=== PATIENT | female | born 1945 | race Caucasian/White ===

== ENCOUNTER 2020-07-09 07:51 | Day surgery (SDC) | payer MEDICAID, MEDICARE ==
[~2020-07-09 07:51] MED LIST: Midazolam 1 MG/ML 2 ML SDV ONE; Propofol 200 MG/20 ML SDV ONE; fentaNYL 100 MCG/2 ML SDV ONE
[2020-07-09] MEDS ORDERED: Sodium Chloride 0.9% 1,000 ML IV SCH (08:15)
--- NOTE | 2020-07-10 09:04 | OR ---
DATE OF PROCEDURE: 07/09/2020 SURGEON: Ganesh Pena MD PROCEDURE: EGD. FINDINGS: 1. Very mild inflammation at GE junction. 2. Retained solid food in the stomach. COMPLICATIONS: None. MECHANIC DRIVER: None. ANESTHESIA: MAC. PREOPERATIVE DIAGNOSIS: Dysphagia. POSTOPERATIVE DIAGNOSIS: Dysphagia. RISKS: Risks, benefits, alternatives, and limitations including, but not limited to, infection, bleeding, perforation, false positives and false negatives were explained. The patient wished to proceed. PROCEDURE IN DETAIL: The patient was placed in left lateral decubitus position. The EGD scope was introduced and advanced atraumatically to the second part of the duodenum. No evidence of duodenitis or ulceration. No old or new blood within the stomach. The patient had a large amount of retained solid food. The GE junction showed very mild inflammation concerning for reflux disease, biopsied in all 4 quadrants using cold biopsy forceps. The remaining esophagus was inspected and without abnormality. The air was removed from the stomach. The patient tolerated the procedure well. Of note, the patient will be sent for speech pathology for further evaluation. Ganesh Pena MD /[id number]
== END 2020-07-09 11:20 | disposition home or self-care (01) ==
LOC: JP.SDS 07:51
PROVIDERS: ATTEND Surgery
DX: K20.90 Esophagitis, unspecified without bleeding (principal); K22.8 Other specified diseases of esophagus; E11.9 Type 2 diabetes mellitus without complications; R13.10 Dysphagia, unspecified
CPT/HCPCS: 43239; J2704; J3010; J7030; 88305; J2250

== ENCOUNTER 2021-02-21 08:33 | Emergency (ER) | payer MEDICARE ==
--- NOTE | 2021-02-21 09:18 | EDM.PDOC ---
ED HPI GENERAL MEDICAL PROBLEM - General Chief Complaint: General Stated Complaint: VIA [facility] Time Seen by Provider: 02/21/21 08:50 Source of Information: Reports: Patient, EMS History Limitations: Reports: No Limitations - History of Present Illness INITIAL COMMENTS - FREE TEXT/NARRATIVE: 75-year-old female brought in by [facility] ambulance because of bilateral shoulder pain, weakness, and generalized malaise after some medication changes over the past few days. Her rheumatoid medicines have been reduced so she can be on an antibiotic for "sinus infection". This morning she was having significant discomfort in her shoulders, difficulty moving, and generalized weakness compared to her baseline. She lives in assisted living, they felt more comfortable with her having an evaluation although her symptoms seem to have improved and she feels closer to her baseline at this time. No fevers or chills, no nausea or vomiting, denies shortness of breath. She has had a persistent periorbital headache for the past 3 weeks which they are attributing to sinusitis. She also felt yesterday she was leaning in her chair somewhat, could not really explain why. Onset: Gradual Associated Symptoms: Reports: Confusion (Mild confusion intermittent), Headaches (Left-sided), Malaise, Weakness. Denies: Chest Pain, Cough, Fever/Chills, Loss of Appetite, Shortness of Breath - Related Data Allergies Allergy/AdvReac Type Severity Reaction Status Date / Time No Known Allergies Allergy Verified 07/09/20 08:32 Home Meds: Home Meds Acetaminophen [Tylenol] 650 mg PO Q6HR PRN 07/06/20 [History] Calcium Carb/Vitamin D3/Vit K1 [Calcium + D Soft Chewable Tab] 1 tab PO DAILY 07/06/20 [History] DULoxetine [Cymbalta] 20 mg PO DAILY 07/06/20 [History] Dulaglutide [Trulicity] 0.75 mg SQ WEEKLY 07/06/20 [History] Gabapentin [Neurontin] 200 mg PO BID 07/06/20 [History] Menthol [Biofreeze] 1 applic TOP QID 07/06/20 [History] Metoprolol Succinate [Toprol Xl] 50 mg PO DAILY 07/06/20 [History] Multivitamin with Folic Acid [Multiple Vitamin Tablet] 1 tab PO DAILY 07/06/20 [History] Mupirocin 1 applic TOP BID 07/06/20 [History] Pantoprazole Sodium [Protonix] 40 mg PO DAILY 07/06/20 [History] Pyridoxine HCl (Vitamin B6) [Vitamin B-6] 100 mg PO DAILY 07/06/20 [History] Vitamin E 3 tab PO DAILY 07/06/20 [History] atorvaSTATin [Lipitor] 40 mg PO DAILY 07/06/20 [History] metFORMIN [Glucophage] 1,000 mg PO BID 07/06/20 [History] predniSONE [Prednisone] 4 tab PO DAILY 07/06/20 [History] traZODone 100 mg PO BEDTIME 07/06/20 [History] Past Medical History HEENT History: Reports: Cataract, Macular Degeneration Cardiovascular History: Reports: High Cholesterol Gastrointestinal History: Reports: Cholelithiasis [employer] History: Reports: Endometriosis, Neurological History: Reports: Concussion Endocrine/Metabolic History: Reports: Diabetes, Type II Immunologic History: Reports: Other (See Below) Other Immunologic History: Lupus Dermatologic History: Reports: Eczema - Infectious Disease History Infectious Disease History: Reports: Chicken Pox, Measles, 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 Denies: Vision Change Respiratory: Denies: Shortness of Breath, Pleuritic Chest Pain Cardiovascular: Denies: Chest Pain, Palpitations GI/Abdominal: Denies: Abdominal Pain, Nausea, Vomiting Musculoskeletal: Reports: Shoulder Pain (Bilateral, somewhat worse on the left) Skin: Denies: Bruising, Rash Neurological: Reports: Headache, Weakness (Global weakness, no asymmetry) Psychiatric: Reports: No Symptoms ED EXAM, GENERAL - Physical Exam Exam: See Below Exam Limited By: No Limitations General Appearance: Alert, No Apparent Distress Eye Exam: Bilateral Eye: EOMI, PERRL Head: Atraumatic Neck: Supple, Non-Tender Respiratory/Chest: Lungs Clear Cardiovascular: Regular Rate, Rhythm GI/Abdominal: Soft, Non-Tender Extremities: Other (Even minimal passive range of motion of the left shoulder causes intense discomfort, the right is sore as well) Neurological: Alert, Oriented, No Motor/Sensory Deficits (No asymmetry of weakness to the extremities) Psychiatric: Normal Affect, Normal Mood Course - Vital Signs Last Recorded V/S: Last Vital Signs Temp 95.9 F L 02/21/21 08:48 Pulse 67 02/21/21 08:48 Resp 12 02/21/21 08:48 BP 117/54 L 02/21/21 08:48 Pulse Ox 95 02/21/21 08:48 - Orders/Labs/Meds Labs: Laboratory Tests 02/21/21 02/21/21 Range/Units 09:25 09:25 WBC 16.5 H (4.5-11.0) K/uL RBC 3.47 (3.30-5.50) M/uL Hgb 10.4 L (12.0-15.0) g/dL Hct 31.3 L (36.0-48.0) % MCV 90 (80-98) fL MCH 30 (27-31) pg MCHC 33 (32-36) % Plt Count 268 (150-400) K/uL Neut % (Auto) 84.8 H (36-66) % Lymph % (Auto) 7.8 L (24-44) % [place] % (Auto) 6.5 H (2-6) % Eos % (Auto) 0.7 L (2-4) % Baso % (Auto) 0.2 (0-1) % Sodium 131 L (140-148) mmol/L Potassium 4.1 (3.6-5.2) mmol/L Chloride 94 L (100-108) mmol/L Carbon Dioxide 29 (21-32) mmol/L Anion Gap 12.1 (5.0-14.0) mmol/L BUN 18 (7-18) mg/dL Creatinine 1.2 H (0.6-1.0) mg/dL Est Cr Clr Drug Dosing 34.54 mL/min Estimated GFR (MDRD) 44 L (>60) Glucose 99 (74-106) mg/dL Calcium 9.0 (8.5-10.1) mg/dL Troponin I High Sens 5.4 (<=60.3) pg/mL - Re-Assessments/Exams Free Text/Narrative Re-Assessment/Exam: 02/21/21 09:[address] without contrast as well as CBC BMP and troponin were obtained. If these tests are reassuring, patient will be able to be transferred back. 02/21/21 10:07 White count is elevated likely due to the prednisone therapy, head CT was negative as follows IMPRESSION: No acute intracranial abnormality. Rest for labs were reassuring and the patient remained asymptomatic other than baseline symptoms while in the emergency room. I have no reason for hospitalization or further assessment at this time. Departure - Departure Time of Disposition: 10:53 Disposition: DC/[facility] Clinical Impression: Rheumatoid arthritis flare, Generalized weakness Shoulder pain, bilateral Qualifiers: Chronicity: chronic Qualified Code(s): M25.511 - Pain in right shoulder - Discharge Information Instructions: Arthritis Referrals: Kalani Silvestre MD [Primary Care Provider] - Forms: ED Department Discharge Care Plan Goals: Continue with current treatment plan, treat pain as needed. Consider rechecking with your primary provider in 2 or 3 days if not improving satisfactorily. Sepsis Event Note (ED) - Evaluation Sepsis Screening Result: No Definite Risk - Focused Exam Vital Signs: Vital Signs Temp Pulse Resp BP Pulse Ox 02/21/21 08:48 95.9 F L 67 12 117/54 L 95
--- NOTE | 2021-02-21 10:06 | CRLCT ---
For Patients: As a result of the Century Cures Act, medical imaging exams and procedure reports are released immediately into your electronic medical record. You may view this report before your referring provider. If you have questions, please contact your health care provider. INDICATION: Weakness. Headache. TECHNIQUE: CT Head without contrast. COMPARISON: None FINDINGS: There is atherosclerotic calcification. No hydrocephalus. Mild frontal atrophy. No midline shift. No acute intracranial hemorrhage. No extra-axial fluid collection. No skull fracture. Visualized paranasal sinuses and mastoid air cells are clear. IMPRESSION: No acute intracranial abnormality. Dictated by Pb Camacho MD @ 02/21/2021 10:04:16 AM Please note that all CT scans at this facility use dose modulation, iterative reconstruction, and/or weight-based dosing when appropriate to reduce radiation dose to as low as reasonably achievable. Dictated by: Pb Camacho MD @ 02/21/2021 10:04:24 (Electronically Signed)
== END 2021-02-21 10:54 ==
LOC: JP.ED 08:33
DX: M06.9 Rheumatoid arthritis, unspecified (principal); R53.1 Weakness; E78.00 Pure hypercholesterolemia, unspecified; E11.9 Type 2 diabetes mellitus without complications; Z79.84 Long term (current) use of oral hypoglycemic drugs; Z79.899 Other long term (current) drug therapy
CPT/HCPCS: 36415; 70450; 80048; 84484; 85025; 99285-25

== ENCOUNTER 2021-06-23 19:33 | Emergency (ER) | payer MEDICARE | END 2021-06-23 23:12 | disposition home or self-care (01) | LOC: JP.ED 19:33 | DX: R53.1 Weakness (principal); F01.50 Vascular dementia, unspecified severity, without behavioral disturbance, psychotic disturbance, mood disturbance, and anxiety; E78.00 Pure hypercholesterolemia, unspecified; E11.9 Type 2 diabetes mellitus without complications; Z79.84 Long term (current) use of oral hypoglycemic drugs; Z79.899 Other long term (current) drug therapy | CPT/HCPCS: 36415; 80048; 81001; 82140; 82607; 82728; 82746; 84439; 84443; 84450; 84460; 85025; 99283; 99284 ==

== ENCOUNTER 2021-07-08 10:04 | Day surgery (SDC) | payer MEDICARE ==
[2021-07-08] MEDS ORDERED: Sodium Chloride 0.9% 1,000 ML IV SCH (10:30)
[2021-07-08] MEDS ORDERED: Propofol 200 MG/20 ML SDV ONE ×2 (10:50→11:46)
[2021-07-08] MEDS ORDERED: fentaNYL 100 MCG/2 ML SDV ONE (10:50)
[2021-07-08 11:08] LABS: CORONAVIRUS COVID-19 NAA NEGATIVE (NEGATIVE)
== END 2021-07-08 14:44 ==
LOC: JP.SDS 10:04
PROVIDERS: ATTEND Family Medicine
DX: K29.61 Other gastritis with bleeding (principal); K25.4 Chronic or unspecified gastric ulcer with hemorrhage; D50.0 Iron deficiency anemia secondary to blood loss (chronic); R19.5 Other fecal abnormalities; E11.9 Type 2 diabetes mellitus without complications; E78.5 Hyperlipidemia, unspecified; Z01.812 Encounter for preprocedural laboratory examination; Z20.822 Contact with and (suspected) exposure to COVID-19
CPT/HCPCS: 0241U; 88305; J2704; J3010; J7030

== ENCOUNTER 2022-12-03 18:18 | Inpatient (IN) | payer MEDICARE ==
[2022-12-03] MEDS ORDERED: Sodium Chloride 0.9% 10 ML Syringe FLUSH PRN (18:19)
[2022-12-03] MEDS ORDERED: Sodium Chloride 0.9% 1,000 ML IV SCH ×2 (18:30→19:45)
[2022-12-03 18:43] LABS: BASOPHILS ABSOLUTE AUTO 0.08 K/uL (0.00-0.10); BASOPHILS PERCENT AUTO 0.3 % (0.1-1.3); EOSINOPHILS ABSOLUTE AUTO 0.08 K/uL (0.00-0.40); EOSINOPHILS PERCENT AUTO 0.3 % (0.0-5.4); HEMATOCRIT 27.4 % (34.3-46.0); HEMOGLOBIN 8.8 g/dL (11.2-15.5); IMMATURE GRAN PERCENT AUTO 0.4 % (0.0-0.7); LYMPHOCYTES ABSOLUTE AUTO 0.76 K/uL (0.8-3.3); LYMPHOCYTES PERCENT AUTO 3.3 % (11.4-47.7); MEAN CORPUSCULAR HEMOGLOBIN 26.6 pg (31.6-35.5); MEAN CORPUSCULAR HGB CONC 32.1 g/dL (31.6-35.5); MEAN CORPUSCULAR VOLUME 82.8 fL (81.4-99.0); MONOCYTES ABSOLUTE AUTO 1.02 K/uL (0.20-0.90); MONOCYTES PERCENT AUTO 4.4 % (3.3-12.6); NEUTROPHILS ABSOLUTE AUTO 21.18 K/uL (1.0-7.6); NEUTROPHILS PERCENT AUTO 91.3 % (40.0-78.1); PLATELET COUNT,PLT 339 K/uL (130-375); RED BLOOD CELL COUNT 3.31 M/uL (3.77-5.24); WHITE BLOOD CELL COUNT,WBC 23.2 K/uL (3.2-11.0)
[2022-12-03 19:13] LABS: A/G RATIO 1.1 (1.2-2.2); ALANINE AMINOTRANSFERASE,ALT 20 U/L (12-78); ALBUMIN 3.2 g/dL (3.4-5.0); ALKALINE PHOSPHATASE 67 U/L (46-116); ASPARTATE AMNIOTRANSFERASE,AST 16 U/L (15-37); BILIRUBIN TOTAL 0.4 mg/dL (0.2-1.0); BLOOD UREA NITROGEN,BUN 20 mg/dL (7-18); C-REACTIVE PROTEIN 0.21 mg/dL (0.0-0.3); CALCIUM 8.6 mg/dL (8.5-10.1); CARBON DIOXIDE,CO2 27 mmol/L (21-32); CHLORIDE,CL 101 mmol/L (100-108); CREATININE 1.1 mg/dL (0.6-1.0); ESTIMATED GFR 52 mL/min (>60); GLUCOSE RANDOM 140 mg/dL (74-106); POTASSIUM,K 3.7 mmol/L (3.6-5.2); SODIUM,NA 135 mmol/L (140-148); TROPONIN I HIGH SENSITIVITY 9.6 pg/mL (<=60.3)
[2022-12-03 19:14] LABS: ANION GAP 10.7 mmol/L (5.0-14.0)
[2022-12-03] MEDS ORDERED: cefTRIAXone 1 GM in Sodium Chloride 0.9% 50 ML IV ONE (19:17)
[2022-12-03 21:00] LABS: APPEARANCE,URINE SLIGHTLY CLOUDY (CLEAR); BILIRUBIN,URINE NEGATIVE (NEGATIVE); COLOR,URINE YELLOW (YELLOW); GLUCOSE,URINE NEGATIVE (NEGATIVE); KETONES,URINE NEGATIVE (NEGATIVE); LEUKOCYTE ESTERASE,URINE MODERATE (NEGATIVE); NITRITE,URINE NEGATIVE (NEGATIVE); OCCULT BLOOD,URINE SMALL (NEGATIVE); PROTEIN,URINE 30 mg/dL (NEGATIVE); UROBILINOGEN,URINE 0.2 EU/dL (0.2-1.0)
[2022-12-03 21:06] LABS: AMORPHOUS SEDIMENT,URINE NOT SEEN; BACTERIA,URINE MANY; EPITHELIAL CELLS,URINE RARE; MUCUS,URINE NOT SEEN; WBC,URINE SEMI-PACKED (0-5)
[2022-12-03] MEDS ORDERED: Melatonin 3 MG Tab PO PRN (22:27)
[2022-12-03] MEDS ORDERED: Sennosides/Docusate Sodium 50-8.6 MG Tab PO PRN (22:27)
[2022-12-03] MEDS ORDERED: Acetaminophen 325 MG Tab PO PRN (22:27)
[2022-12-03] MEDS ORDERED: Methotrexate 2.5 MG Tab PO SCH (22:27)
[2022-12-03] MEDS ORDERED: Ondansetron 4 MG/2 ML SDV IV PRN (22:27)
[2022-12-03] MEDS ORDERED: Ondansetron 4 MG Tab.DIS PO PRN (22:27)
[2022-12-03] MEDS ORDERED: Magnesium Hydroxide 400 MG/5 ML Susp 30 ML Cup PO PRN (22:27)
[2022-12-03] MEDS: Enoxaparin 40 MG/0.4 ML Syringe SUBCUT SCH (22:46)
[2022-12-03] MEDS: atorvaSTATin 20 MG Tab PO SCH (22:47)
[2022-12-03] MEDS: cefTRIAXone 1 GM in Sodium Chloride 0.9% 50 ML IV SCH (22:55)
[2022-12-04] MEDS: Sodium Chloride 0.9% 1,000 ML IV SCH ×2 (01:31→08:44)
[2022-12-04 04:50] LABS: HEMATOCRIT 23.3 % (34.3-46.0); HEMOGLOBIN 7.4 g/dL (11.2-15.5); MEAN CORPUSCULAR HEMOGLOBIN 26.4 pg (31.6-35.5); MEAN CORPUSCULAR HGB CONC 31.8 g/dL (31.6-35.5); MEAN CORPUSCULAR VOLUME 83.2 fL (81.4-99.0); RED BLOOD CELL COUNT 2.8 M/uL (3.77-5.24); WHITE BLOOD CELL COUNT,WBC 18.5 K/uL (3.2-11.0)
[2022-12-04 05:17] LABS: CALCIUM 7.8 mg/dL (8.5-10.1); CREATININE 0.8 mg/dL (0.6-1.0); EST CRCL DRUG DOSING (CG) 52.47 mL/min; POTASSIUM,K 3.6 mmol/L (3.6-5.2)
[2022-12-04 05:30] LABS: ANION GAP 10.6 mmol/L (5.0-14.0)
[2022-12-04] MEDS: Pantoprazole 40 MG Tab.CR PO SCH (08:10)
[2022-12-04] MEDS: Lactobacillus Rhamnosus GG (Probiotic) Cap PO SCH ×2 (08:10→21:43)
[2022-12-04] MEDS: Polyethylene Glycol 3350 Powder 17 GM Packet PO SCH (08:10)
[2022-12-04] MEDS ORDERED: Psyllium Husk Powder Sugar Free 5.85 GM Packet PO SCH (09:00)
[2022-12-04] MEDS ORDERED: Potassium Chloride 20 MEQ Tab.ER PO ONE (12:00)
[2022-12-04] MEDS: atorvaSTATin 20 MG Tab PO SCH (21:42)
[2022-12-04] MEDS: traZODone 50 MG Tab PO SCH (21:43)
[2022-12-04] MEDS: Psyllium Husk Powder Sugar Free 5.85 GM Packet PO SCH (21:43)
[2022-12-04] MEDS: cefTRIAXone 1 GM in Sodium Chloride 0.9% 50 ML IV SCH (21:50)
[2022-12-04] MEDS: Enoxaparin 40 MG/0.4 ML Syringe SUBCUT SCH (22:32)
[2022-12-05 04:31] LABS: HEMATOCRIT 24.2 % (34.3-46.0); HEMOGLOBIN 7.8 g/dL (11.2-15.5); MEAN CORPUSCULAR HEMOGLOBIN 26.8 pg (31.6-35.5); MEAN CORPUSCULAR HGB CONC 32.2 g/dL (31.6-35.5); MEAN CORPUSCULAR VOLUME 83.2 fL (81.4-99.0); RED BLOOD CELL COUNT 2.91 M/uL (3.77-5.24); WHITE BLOOD CELL COUNT,WBC 12.1 K/uL (3.2-11.0)
[2022-12-05 05:13] LABS: CREATININE 0.8 mg/dL (0.6-1.0); EST CRCL DRUG DOSING (CG) 52.47 mL/min; IRON,FE 11 ug/dL (50-170); PERCENT FE SATURATION 4 % (20-55); POTASSIUM,K 3.9 mmol/L (3.6-5.2); TOTAL IRON BINDING CAPACITY 259 ug/dl (250-450)
[2022-12-05 05:15] LABS: ANION GAP 9.9 mmol/L (5.0-14.0)
[2022-12-05] MEDS: Pantoprazole 40 MG Tab.CR PO SCH (08:00)
[2022-12-05] MEDS: Lactobacillus Rhamnosus GG (Probiotic) Cap PO SCH ×2 (08:00→20:06)
[2022-12-05] MEDS: Psyllium Husk Powder Sugar Free 5.85 GM Packet PO SCH ×2 (08:01→20:03)
[2022-12-05] MEDS: Polyethylene Glycol 3350 Powder 17 GM Packet PO SCH ×2 (08:01→08:08)
[2022-12-05] MEDS ORDERED: Methotrexate 2.5 MG Tab PO SCH (09:00)
[2022-12-05] MEDS ORDERED: Sodium Ferric Gluconate Cmplex 250 MG in Sodium Chloride 0.9% 100 ML IV ONE (10:00)
[2022-12-05] MEDS: Ferrous Sulfate 325 MG Tab PO SCH (17:16)
[2022-12-05] MEDS: atorvaSTATin 20 MG Tab PO SCH (20:06)
[2022-12-05] MEDS: traZODone 50 MG Tab PO SCH (20:06)
[2022-12-05] MEDS: Enoxaparin 40 MG/0.4 ML Syringe SUBCUT SCH (22:13)
[2022-12-05] MEDS: cefTRIAXone 1 GM in Sodium Chloride 0.9% 50 ML IV SCH (22:13)
[2022-12-06 05:28] LABS: HEMATOCRIT 25.3 % (34.3-46.0); HEMOGLOBIN 8.1 g/dL (11.2-15.5); MEAN CORPUSCULAR HEMOGLOBIN 26.6 pg (31.6-35.5); MEAN CORPUSCULAR VOLUME 83.2 fL (81.4-99.0); RED BLOOD CELL COUNT 3.04 M/uL (3.77-5.24); WHITE BLOOD CELL COUNT,WBC 7.8 K/uL (3.2-11.0)
[2022-12-06 05:44] LABS: CREATININE 0.8 mg/dL (0.6-1.0); EST CRCL DRUG DOSING (CG) 52.47 mL/min; POTASSIUM,K 3.5 mmol/L (3.6-5.2)
[2022-12-06 05:50] LABS: ANION GAP 12.5 mmol/L (5.0-14.0)
[2022-12-06] MEDS ORDERED: Potassium Chloride 20 MEQ Tab.ER PO ONE (08:00)
[2022-12-06] MEDS: Ferrous Sulfate 325 MG Tab PO SCH (08:12)
[2022-12-06] MEDS: Lactobacillus Rhamnosus GG (Probiotic) Cap PO SCH (08:12)
[2022-12-06] MEDS: Polyethylene Glycol 3350 Powder 17 GM Packet PO SCH (08:12)
[2022-12-06] MEDS: Psyllium Husk Powder Sugar Free 5.85 GM Packet PO SCH (08:12)
[2022-12-06] MEDS: Pantoprazole 40 MG Tab.CR PO SCH (08:12)
[2022-12-06] MEDS ORDERED: Sodium Ferric Gluconate Cmplex 250 MG in Sodium Chloride 0.9% 100 ML IV ONE (09:00)
== END 2022-12-06 12:00 | DRG 872 ==
LOC: JP.ED 18:18 → JP.MS 21:48
PROVIDERS: ADMIT Registered Nurse; ATTEND Hospitalist
DX: A41.3 Sepsis due to Hemophilus influenzae (principal); A41.9 Sepsis, unspecified organism; N30.00 Acute cystitis without hematuria; I95.9 Hypotension, unspecified; E86.0 Dehydration; M19.90 Unspecified osteoarthritis, unspecified site; Z20.822 Contact with and (suspected) exposure to COVID-19; F32.A Depression, unspecified; E11.9 Type 2 diabetes mellitus without complications; D64.9 Anemia, unspecified; F01.B0 Vascular dementia, moderate, without behavioral disturbance, psychotic disturbance, mood disturbance, and anxiety; L93.0 Discoid lupus erythematosus; M32.9 Systemic lupus erythematosus, unspecified; R91.1 Solitary pulmonary nodule; G30.9 Alzheimer's disease, unspecified; M06.9 Rheumatoid arthritis, unspecified; Z86.16 Personal history of COVID-19; Z90.49 Acquired absence of other specified parts of digestive tract; Z90.710 Acquired absence of both cervix and uterus; Z98.890 Other specified postprocedural states; E78.00 Pure hypercholesterolemia, unspecified; M79.7 Fibromyalgia; Z79.899 Other long term (current) drug therapy
CPT/HCPCS: 36415; 80053; 81001; 83605; 84484; 85025; 86140; 87086; 93005; 96361; 96365; 99285; J0696; J3490 ×2; J7030; U0002; 80048; 82607; 82728; 83550; 85027; 97110-GP; 97161-GP; 99223; 99233; 99238; A9270-GY; J1650; J2916; J8610

== ENCOUNTER 2023-04-27 03:59 | Emergency (ER) | payer MEDICARE ==
[2023-04-27 04:33] LABS: BASOPHILS ABSOLUTE AUTO 0.06 K/uL (0.00-0.10); BASOPHILS PERCENT AUTO 0.5 % (0.1-1.3); EOSINOPHILS ABSOLUTE AUTO 0.15 K/uL (0.00-0.40); EOSINOPHILS PERCENT AUTO 1.2 % (0.0-5.4); HEMATOCRIT 33.3 % (34.3-46.0); HEMOGLOBIN 11.2 g/dL (11.2-15.5); IMMATURE GRAN ABSOLUTE AUTO 0.05 K/uL (0.00-0.23); IMMATURE GRAN PERCENT AUTO 0.4 % (0.0-0.7); LYMPHOCYTES ABSOLUTE AUTO 0.84 K/uL (0.8-3.3); LYMPHOCYTES PERCENT AUTO 6.6 % (11.4-47.7); MEAN CORPUSCULAR HEMOGLOBIN 29.9 pg (31.6-35.5); MEAN CORPUSCULAR HGB CONC 33.6 g/dL (31.6-35.5); MEAN CORPUSCULAR VOLUME 88.8 fL (81.4-99.0); MONOCYTES ABSOLUTE AUTO 0.18 K/uL (0.20-0.90); MONOCYTES PERCENT AUTO 1.4 % (3.3-12.6); NEUTROPHILS ABSOLUTE AUTO 11.44 K/uL (1.0-7.6); NEUTROPHILS PERCENT AUTO 89.9 % (40.0-78.1); PLATELET COUNT,PLT 232 K/uL (130-375); RED BLOOD CELL COUNT 3.75 M/uL (3.77-5.24); WHITE BLOOD CELL COUNT,WBC 12.7 K/uL (3.2-11.0)
[2023-04-27 04:37] LABS: APPEARANCE,URINE CLOUDY (CLEAR); BILIRUBIN,URINE NEGATIVE (NEGATIVE); COLOR,URINE YELLOW (YELLOW); GLUCOSE,URINE NEGATIVE (NEGATIVE); KETONES,URINE NEGATIVE (NEGATIVE); LEUKOCYTE ESTERASE,URINE SMALL (NEGATIVE); NITRITE,URINE NEGATIVE (NEGATIVE); OCCULT BLOOD,URINE MODERATE (NEGATIVE); PH,URINE 5.5 (5.0-8.0); PROTEIN,URINE 30 mg/dL (NEGATIVE); UROBILINOGEN,URINE 0.2 EU/dL (0.2-1.0)
[2023-04-27 04:41] LABS: AMORPHOUS SEDIMENT,URINE NOT SEEN; BACTERIA,URINE MODERATE; EPITHELIAL CELLS,URINE FEW; MUCUS,URINE NOT SEEN; WBC,URINE PACKED (0-5)
[2023-04-27 04:53] LABS: A/G RATIO 0.8 (1.2-2.2); ALANINE AMINOTRANSFERASE,ALT 38 U/L (12-78); ALBUMIN 3.1 g/dL (3.4-5.0); ALKALINE PHOSPHATASE 77 U/L (46-116); ASPARTATE AMNIOTRANSFERASE,AST 30 U/L (15-37); BILIRUBIN TOTAL 0.6 mg/dL (0.2-1.0); BLOOD UREA NITROGEN,BUN 22 mg/dL (7-18); CALCIUM 8.4 mg/dL (8.5-10.1); CARBON DIOXIDE,CO2 29 mmol/L (21-32); CHLORIDE,CL 99 mmol/L (100-108); CREATININE 1.5 mg/dL (0.6-1.0); EST CRCL DRUG DOSING (CG) 27.55 mL/min; ESTIMATED GFR 36 mL/min (>60); GLUCOSE RANDOM 159 mg/dL (74-106); PROTEIN TOTAL,TP 6.8 g/dL (6.4-8.2); SODIUM,NA 134 mmol/L (140-148)
[2023-04-27] MEDS: Sodium Chloride 0.9% 10 ML Syringe FLUSH PRN (05:24)
[2023-04-27] MEDS: cefTRIAXone 1 GM in Sodium Chloride 0.9% 50 ML IV ONE (05:24)
[2023-04-27 10:09] LABS: HEMATOCRIT 33.8 % (34.3-46.0); HEMOGLOBIN 11.4 g/dL (11.2-15.5); MEAN CORPUSCULAR HGB CONC 33.7 g/dL (31.6-35.5); MEAN CORPUSCULAR VOLUME 88.9 fL (81.4-99.0); RED BLOOD CELL COUNT 3.8 M/uL (3.77-5.24); WHITE BLOOD CELL COUNT,WBC 10.9 K/uL (3.2-11.0)
== END 2023-04-27 11:05 ==
LOC: JP.ED 03:59
DX: N39.0 Urinary tract infection, site not specified (principal); E78.00 Pure hypercholesterolemia, unspecified; E11.9 Type 2 diabetes mellitus without complications; Z86.16 Personal history of COVID-19; Z90.710 Acquired absence of both cervix and uterus; Z79.899 Other long term (current) drug therapy
CPT/HCPCS: 36415; 73502; 80053; 81001; 83605; 84145; 85025; 85027; 87086; 87088; 87186; 96365; 99285; J0696; J3490